=== PATIENT | female | born 1970 | race Caucasian/White ===

== ENCOUNTER → 2019-10-07 | Outpatient (CLI) | payer OTHER ==
[~2019-10-07] MED LIST: HYDROCODONE-AP1 EAC6 PO; PEPCID20 MG PO; PROZAC20 MG PO; UNICOMPLEX M TA1 TA1 PO; VITAMIN D1000 UNI1 PO; ZOFRAN ODT4 MG PO; ZYRTEC10 MG PO
== END ==
LOC: M.LAB 07:37
PROVIDERS: ATTEND Orthopaedic Surgery
DX: Z01.812 Encounter for preprocedural laboratory examination (principal); Z11.59 Encounter for screening for other viral diseases